=== PATIENT | female | born 2000 | race Caucasian/White ===

== ENCOUNTER 2020-04-10 22:56 | Emergency (ER) | payer OTHER ==
[2020-04-10 23:18] VITALS: TEMP 98.5; BMI 24.0
[2020-04-10] MEDS ORDERED: FAMOTIDINE 20 MG TABLET PO ONE (23:43)
[2020-04-10] MEDS ORDERED: MAG HYDROX/AL HYDROX/SIMETH 30 ML UNIT-DOSE CUP PO ONE (23:43)
[2020-04-11] MEDS ORDERED: LIDOCAINE VISCOUS 2% ORAL/TOP 15 ML UNIT-DOSE CUP MM ONE (00:18)
[2020-04-11] MEDS ORDERED: FAMOTIDINE 20 MG TABLET ONE (00:28)
[2020-04-11] MEDS ORDERED: LIDOCAINE VISCOUS 2% ORAL/TOP 15 ML UNIT-DOSE CUP ONE (00:28)
[2020-04-11] MEDS ORDERED: MAG HYDROX/AL HYDROX/SIMETH 30 ML UNIT-DOSE CUP ONE (00:28)
[2020-04-11 01:16] VITALS: BP 117/69; PULSE 82
== END 2020-04-11 01:17 | disposition home or self-care (01) ==
LOC: JER 22:56
DX: F45.8 Other somatoform disorders (principal)
CPT/HCPCS: 99284-25

== ENCOUNTER → 2020-04-24 | Day surgery (SDC) | payer OTHER ==
[2020-04-22 14:56] VITALS: BMI 24.7
[~2020-04-24] MED LIST: ACETAMINOPHEN 500 MG TABLET (FP) ONE; ACETAMINOPHEN 500 MG TABLET (FP) PO ONE; PROPOFOL 20 ML ONE
[2020-04-24 11:19] VITALS: TEMP 97.5
[2020-04-24 12:04] VITALS: BP 112/59; PULSE 76
== END | disposition home or self-care (01) ==
LOC: JASU-ENDO 04:59
PROVIDERS: ATTEND Internal Medicine Gastroenterology
PROC: 0DB68ZX Excision of Stomach, Via Natural or Artificial Opening Endoscopic, Diagnostic (ICD-10-PCS; principal; 2020-04-24 10:00)
DX: K29.50 Unspecified chronic gastritis without bleeding (principal)
CPT/HCPCS: 88305-TC; 88342-TC

== ENCOUNTER 2021-12-11 22:47 | Emergency (ER) | payer OTHER ==
[2021-12-11 23:06] VITALS: BP 124/65; BMI 25.7
[2021-12-11] MEDS ORDERED: ACETAMINOPHEN 325 MG TABLET (FP) PO ONE (23:24)
[2021-12-12] MEDS ORDERED: IBUPROFEN 100 MG/5 ML UNIT DOSE CUPS PO ONE (00:21)
[2021-12-12] MEDS ORDERED: IBUPROFEN 100 MG/5 ML UNIT DOSE CUPS ONE (00:30)
[2021-12-12 01:41] VITALS: PULSE 95; RESP 18; TEMP 99.8
== END 2021-12-12 01:03 | disposition home or self-care (01) ==
LOC: JER 22:47
DX: J11.1 Influenza due to unidentified influenza virus with other respiratory manifestations (principal)
CPT/HCPCS: 0241U-QW; 99283-25